=== PATIENT | female | born 1945 | race Caucasian/White ===

== ENCOUNTER 2016-11-07 15:15 | Inpatient (IN) | payer MEDICARE ==
[~2016-11-07] VITALS: Ht 162.6 cm; Wt 60.0 kg
[~2016-11-07 15:15] MED LIST: CYAN1TAB28 PO; FERR325T31 PO; POTA10TA31 PO; WARF5TAB7 PO; ZINC30TA2 PO
--- NOTE | 2016-11-07 19:14 | RAD ---
PROCEDURE CT HEAD HISTORY syncope
priors sent TECHNIQUE AXIAL IMAGES THROUGH THE HEAD WERE OBTAINED. NO IV CONTRAST WAS ADMINISTERED. COMPARISON NOTE IS MADE OF PREVIOUS EXAMINATION 12/07/2015. FINDINGS AN ACUTE CALVARIAL FINDING IS NOT SEEN. THE PARANASAL SINUSES APPEAR NORMALLY AERATED. THERE IS NO SUBDURAL OR EPIDURAL HEMATOMA. THERE IS SOME MODEST UNDERLYING ATROPHY. NO HEMORRHAGE IS SEEN. NO ACUTE FINDING IS APPARENT. IMPRESSION Chronic changes. No acute findings seen in the head Electronically signed by: Jc Moreno (Nov 07, 2016 19:13:22)
[2016-11-07 19:59] LABS: BASO % 1 % (0-3); EOS % 0 % (0-3); HEMATOCRIT 37.3 % (36.0-47.0); HEMOGLOBIN 12.4 g/dL (12.0-15.5); LYMPH # 1.1 x10^3/uL (1.0-4.8); LYMPH % 11 % (24-48); MEAN CORPUSCULAR HEMOGLOBIN 29 pg (25-35); MEAN CORPUSCULAR HGB CONC 33 g/dL (31-37); MEAN CORPUSCULAR VOLUME 87 fL (79-100); MONO % 8 % (0-9); NEUT % 81 % (31-73); PLATELET COUNT 229 x10^3/uL (140-400); WHITE BLOOD COUNT 10.4 x10^3/uL (4.0-11.0)
[2016-11-07 20:10] LABS: INR 2.5 (0.8-1.1); PROTHROMBIN TIME PATIENT 25.7 SEC (11.7-14.0)
[2016-11-07 21:49] LABS: OBC FLU VALID
[2016-11-07 22:20] LABS: CALCIUM 9.9 mg/dL (8.5-10.1); CREATININE 1.3 mg/dL (0.6-1.0); GFR 40.6
[2016-11-07 22:26] LABS: ALBUMIN 4.2 g/dL (3.4-5.0); ALBUMIN/GLOBULIN RATIO 1.4 (1.0-1.7); TOTAL BILIRUBIN 1.7 mg/dL (0.2-1.0); TOTAL PROTEIN 7.3 g/dL (6.4-8.2)
[2016-11-07 22:33] LABS: BILIRUBIN,URINE NEGATIVE (NEG); GLUCOSE,URINE NEGATIVE (NEG); NITRITE,URINE NEGATIVE (NEG); PH,URINE 5.5; PROTEIN,URINE NEGATIVE (NEG-TRACE); UROBILINOGEN,URINE 0.2 mg/dL (0.2 mg/dL)
[2016-11-07] MEDS ORDERED: ACETAMINOPHEN 325 MG TABLET. PO PRN (22:45)
[2016-11-07] MEDS ORDERED: ONDANSETRON PF 4 MG/2 ML VIAL. IV PRN (22:45)
--- NOTE | 2016-11-07 23:02 | ED.ADGEN ---
Past Medical History Past Medical History: Hypertension, Other Additional Past Medical Histor: DVT's, "blood clot in small intestine", heart murmur Past Surgical History: Tonsillectomy Additional Past Surgical Histo: abdominal surgery, fx to R wrist, left shoulder Alcohol Use: None Drug Use: None Adult General Chief Complaint Chief Complaint: SYNCOPE HPI HPI Patient is a 71 year old woman, history of aortic stenosis, atrial fibrillation , "blood clots", which resulted in ischemic bowel and a partial bowel resection , DVT, who is on anticoagulation with Coumadin, who presents emergency Department with complaint of syncope. Patient states that she's had tubes of the syncope over the last several days. Last week she had an episode of syncope at home, where after using the restroom, she got up, felt dizzy and lightheaded , and passed out on her bed. Did not strike her head, did not fall off the bed, denies any trauma that time. Today patient was at [facility] with her , she states that she walked up a flight of stairs rather rapidly, which received a top of the stairs became very dizzy and lightheaded, and then sat down, whereupon she had a brief episode of syncope per her ' s report. No seizure activity reported, patient stated that she did feel nauseous and lightheaded when it occurred. Denies any chest pain, mild shortness of breath. No shortness breath or chest pain at this time, patient states that she is feeling back to normal. Denies any palpitations, any weakness emesis or tingling, any injuries, any ingestions, any sick contacts, any fevers, chills, urinary complaints or GI complaints. States she has been compliant with all medications. Review of Systems Review of Systems Constitutional: Denies fever or chills. [] Eyes: Denies change in visual acuity. [] HENT: Denies nasal congestion or sore throat. [] Respiratory: Denies cough or shortness of breath. [] Cardiovascular: Denies chest pain or edema. [] GI: Denies abdominal pain, nausea, vomiting, bloody stools or diarrhea. [] : Denies dysuria. [] Musculoskeletal: Denies back pain or joint pain. [] Integument: Denies rash. [] Neurologic: Denies headache, focal weakness or sensory changes. Syncope. Endocrine: Denies polyuria or polydipsia. [] Lymphatic: Denies swollen glands. [] Psychiatric: Denies depression or anxiety. [] Current Medications Current Medications Current Medications Medications (Trade) Dose Ordered Sig/Jennifer Start Time Stop Time Status Last Admin Dose Admin Acetaminophen (Tylenol) 650 mg PRN Q4HRS PRN 11/07/16 22:45 11/08/16 22:44 Ondansetron HCl (Zofran) 4 mg PRN Q8HRS PRN 11/07/16 22:45 11/08/16 22:44 Allergies Allergies Allergies Coded Allergies Type Severity Reaction Last Updated Verified No Known Drug Allergies 01/09/14 No Physical Exam Physical Exam Constitutional: Well developed, well nourished, no acute distress, non-toxic appearance. [] HENT: Normocephalic, atraumatic, bilateral external ears normal, oropharynx moist, no oral exudates, nose normal. [] Eyes: PERRLA, EOMI, conjunctiva normal, no discharge. [] Neck: Normal range of motion, no tenderness, supple, no stridor. [] Cardiovascular:Heart rate regular rhythm, 4-5 systolic murmur, S1, S2, rubs or gallops. [] Lungs & Thorax: Bilateral breath sounds clear to auscultation, no wheezing, rhonchi, rales. No chest wall crepitus or tenderness. [] Abdomen: Bowel sounds normal, soft, no tenderness, no rebound, rigidity, no guarding, no masses, no pulsatile masses. [] Skin: Warm, dry, no erythema, no rash. [] Back: No tenderness, no CVA tenderness. [] Extremities: No tenderness, no cyanosis, no clubbing, ROM intact, no edema. Negative Homans sign. [] Neurologic: Alert and oriented X 3, normal motor function, normal sensory function, no focal deficits noted. [] Psychologic: Affect normal, judgement normal, mood normal. [] Current Patient Data Vital Signs Vital Signs Date Time Temp Pulse Resp B/P Pulse Ox O2 Delivery O2 Flow Rate FiO2 11/07/16 17:18 98.0 71 18 156/62 100 Room Air 98.0 Lab Values Laboratory Tests Test 11/07/16 17:47 11/07/16 19:23 Influenza Type A Antigen Negative (NEGATIVE) Influenza Type B Antigen Negative (NEGATIVE) White Blood Count 10.4x10^3/uL (4.0-11.0) Red Blood Count 4.30x10^6/uL (3.50-5.40) Hemoglobin 12.4g/dL (12.0-15.5) Hematocrit 37.3% (36.0-47.0) Mean Corpuscular Volume 87fL (79-100) Mean Corpuscular Hemoglobin 29pg (25-35) Mean Corpuscular Hemoglobin Concent 33g/dL (31-37) Red Cell Distribution Width 15.0% (11.5-14.5) H Platelet Count 229x10^3/uL (140-400) Neutrophils (%) (Auto) 81% (31-73) H Lymphocytes (%) (Auto) 11% (24-48) L Monocytes (%) (Auto) 8% (0-9) Eosinophils (%) (Auto) 0% (0-3) Basophils (%) (Auto) 1% (0-3) Neutrophils # (Auto) 8.4x10^3uL (1.8-7.7) H Lymphocytes # (Auto) 1.1x10^3/uL (1.0-4.8) Monocytes # (Auto) 0.8x10^3/uL (0.0-1.1) Eosinophils # (Auto) 0.0x10^3/uL (0.0-0.7) Basophils # (Auto) 0.0x10^3/uL (0.0-0.2) Prothrombin Time 25.7SEC (11.7-14.0) H Prothrombin Time INR 2.5 (0.8-1.1) H PTT 36SEC (24-38) Sodium Level 132mmol/L (136-145) L Potassium Level 4.0mmol/L (3.5-5.1) Chloride Level 94mmol/L (98-107) L Carbon Dioxide Level 20mmol/L (21-32) L Anion Gap 18 (6-14) H Blood Urea Nitrogen 32mg/dL (7-20) H Creatinine 1.3mg/dL (0.6-1.0) H Estimated GFR (Cockcroft-Gault) 40.6 BUN/Creatinine Ratio 25 (6-20) H Glucose Level 122mg/dL (70-99) H Calcium Level 9.9mg/dL (8.5-10.1) Total Bilirubin 1.7mg/dL (0.2-1.0) H Aspartate Amino Transferase (AST) 37U/L (15-37) Alanine Aminotransferase (ALT) 115U/L (14-59) H Alkaline Phosphatase 101U/L (46-116) Troponin I Quantitative < 0.017ng/mL (0.000-0.055) TW-Pms-Z-Type Natriuretic Peptide 218pg/mL (0-124) H Total Protein 7.3g/dL (6.4-8.2) Albumin 4.2g/dL (3.4-5.0) Albumin/Globulin Ratio 1.4 (1.0-1.7) Laboratory Tests 11/07/16 19:23 Laboratory Tests 11/07/16 19:23 EKG EKG EC: Sinus rhythm, heart rate 70 beats minute, upright axis, QTC of 393, MD of 208, QRS of 76, no ST elevations or depressions, contour abnormalities noted in the lateral leads, abnormal ECG, does not meet STEMI criteria. As interpreted by me. [] Radiology/Procedures Radiology/Procedures [] [facility] [address] [place], [place] [id number] IMAGING REPORT Signed PATIENT: PENELOPE ABEBE ACCOUNT: [id number] : 1945 LOCATION: ER AGE: 71 SEX: F EXAM STATUS: REG ER ORD. PHYSICIAN: ABRAHAM FRANK DO REASON: Syncope PROCEDURE: HEAD WO CONTRAST PROCEDURE CT HEAD HISTORY syncope
priors sent TECHNIQUE AXIAL IMAGES THROUGH THE HEAD WERE OBTAINED. NO IV CONTRAST WAS ADMINISTERED. COMPARISON NOTE IS MADE OF PREVIOUS EXAMINATION 12/07/2015. FINDINGS AN ACUTE CALVARIAL FINDING IS NOT SEEN. THE PARANASAL SINUSES APPEAR NORMALLY AERATED. THERE IS NO SUBDURAL OR EPIDURAL HEMATOMA. THERE IS SOME MODEST UNDERLYING ATROPHY. NO HEMORRHAGE IS SEEN. NO ACUTE FINDING IS APPARENT. IMPRESSION Chronic changes. No acute findings seen in the head Electronically signed by: Hamilton Moreno (Nov 07, 2016 19:13:22) DICTATED and SIGNED BY: HAMILTON MORENO MD DATE: 11/07/161912 CC: ABRAHAM FRANK DO; RANDI PRESCOTT MD ~ Chest x-ray: Normal cardiopulmonary silhouette, no infiltrates, no effusions, no soft tissue or bony abnormalities identified, no pneumothorax. As interpreted by me. Course & Med Decision Making Course & Med Decision Making Pertinent Labs and Imaging studies reviewed. (See chart for details) Patient with recurrent episodes of syncope, does follow with Dr. Montilla of cardiology at , and I'm concerned that these episodes may be due to her aortic stenosis patient history. She is not tachycardic or hypoxic, and is fully anticoagulated on Coumadin, with an INR of 2.5. Is resting completely at this time, but is agreeable for admission to the hospital for further evaluation of her syncope. Laboratory and imaging studies did not reveal any acutely concerning cause for the symptoms. I did discuss findings as above with Dr. Crook of internal medicine, patient was accepted his service as a full admission to the cardiac telemetry floor, with consultation for cardiology and bridge orders entered per his request. Dragon Disclaimer Dragon Disclaimer This electronic medical record was generated, in whole or in part, using a voice recognition dictation system. Departure Impression: Primary Impression: Syncope and collapse Additional Impression: Aortic stenosis Disposition: 09 ADMITTED INPATIENT Admitting Physician: Corinna Crook Condition: STABLE Problem Qualifiers Additional Impression: Aortic stenosis Cardiac valve disease etiology: etiology unspecified Qualified Code: I35.0 - Nonrheumatic aortic (valve) stenosis ABRAHAM FRANK DO Nov 07, 2016 23:02
[2016-11-07 23:18] LABS: BACTERIA,URINE FEW /HPF (0-FEW); RBC,URINE 0 /HPF (0-2); SQUAMOUS EPITHELIAL CELL,UR FEW /LPF; WBC,URINE 0 /HPF (0-4)
[2016-11-08] VITALS (8 sets, daily range): BP systolic 87–181; BP diastolic 42–66
--- NOTE | 2016-11-08 00:02 | ACF ---
Admission Forms Criteria SYNCOPE Clinical Indications for Admission to Inpatient Care ( Place 'X' for any and all applicable criteria): Admission is indicated for syncope and ANY ONE of the following (1)(2)(3)(4)(5) (6)(7) : [X]I. Inpatient admission required rather than observation care (Also use Syncope: Observation Care Criteria as appropriate) because of ANY ONE of the following: [ ]a) Hemodynamic instability that is severe or persistent [ ]b) Cardiac arrhythmias of immediate concern identified or strongly suspected (eg, needs electrophysiologic study) [ ]c) Acute coronary syndrome identified (Also use Myocardial Infarction or Angina Criteria form ) [X]d) Structural cardiac disorder (eg, aortic stenosis) suspected as cause that requires immediate correction [ ]e) Respiratory symptoms (eg, dyspnea, tachypnea) that are severe or persistent [ ]f) Neurologic signs or symptoms that are severe or persistent ( eg, stroke, seizures, altered mental status) [ ]g) Severe electrolyte abnormalities requiring inpatient care [ ]h) Supplemental oxygen or respiratory treatment for over 24 hrs that are performable only in acute inpatient setting [ ]i) IV fluid to replace significant ongoing (eg, for over 24 hrs ) losses (>3 L/m2 per day) [ ]j) Continuous intravenous infusion of anticoagulation, platelet inhibitor, vasoactive, or antiarrhythmic medication(15)(16) [ ]k) Pulmonary artery catheter monitoring [ ]l) Temporary pacemaker placement(17) [ ]m) Emergent cardioversion(18) [ ]n) Other conditions, treatment or monitoring requiring inpatient admission [ ]II. Suspicion of imminently dangerous cause (eg, rare causes like pericardial tamponade, pulmonary embolism) [ ]III. Syncope causing severe injury requiring hospitalization Extended stay beyond goal length of stay may be needed for(28) [ ]a) Dangerous arrhythmia(15)(23)(27)(29) [ ]b) Myocardial ischemia [ ]c) Seizure disorder [ ]d) Syncope-related injuries The original [employer] content created by [employer] has been revised. The portions of the content which have been revised are identified through the use of italic text or in bold, and [employer] has neither reviewed nor approved the modified material. All other unmodified content is copyright [employer]. Please see references footnoted in the original [facility] edition 2016 Admission Criteria Met?: Yes KP VALENTINE Nov 08, 2016 00:02
[2016-11-08 01:04] LABS: BASO # 0.1 x10^3/uL (0.0-0.2); BASO % 1 % (0-3); EOS % 0 % (0-3); HEMATOCRIT 34.7 % (36.0-47.0); HEMOGLOBIN 11.7 g/dL (12.0-15.5); LYMPH # 1.2 x10^3/uL (1.0-4.8); LYMPH % 12 % (24-48); MEAN CORPUSCULAR HEMOGLOBIN 29 pg (25-35); MEAN CORPUSCULAR HGB CONC 34 g/dL (31-37); MEAN CORPUSCULAR VOLUME 87 fL (79-100); MONO % 13 % (0-9); NEUT % 73 % (31-73); PLATELET COUNT 205 x10^3/uL (140-400); RED BLOOD COUNT 3.99 x10^6/uL (3.50-5.40); RED CELL DISTRIBUTION WIDTH 14.8 % (11.5-14.5); WHITE BLOOD COUNT 9.9 x10^3/uL (4.0-11.0)
[2016-11-08 01:16] LABS: CALCIUM 9.3 mg/dL (8.5-10.1); CREATININE 1.3 mg/dL (0.6-1.0); GFR 40.6; POTASSIUM 4.2 mmol/L (3.5-5.1)
[2016-11-08] MEDS ORDERED: AMLODIPINE BESYLATE 5 MG TABLET PO ONE (01:45)
--- NOTE | 2016-11-08 06:38 | EKG ---
[address] [place] [address] Test Date: 2016-11-07 Test Time: 18:16:18 Pat Name: PENELOPE ABEBE Department: Room: 263 1 Gender: F [employer]: : 1945 Requested By: ABRAHAM FRANK Order Number: [id number] Reading MD: Radha Skinner Measurements Intervals Pinson Rate: 70 P: 51 MI: 208 QRS: 13 QRSD: 76 T: 16 QT: 362 QTc: 393 Interpretive Statements SINUS RHYTHM NORMAL ECG RI6.01 No previous ECG available for comparison Electronically Signed On 11-12-2016 19:34:18 [employer] SPECIALIST by Radha Skinner
--- NOTE | 2016-11-08 08:50 | RAD ---
EXAM: Chest one view. HISTORY: Syncope, altered mental status. COMPARISON: 01/06/2006. FINDINGS: A frontal view of the chest is obtained. There are no confluent infiltrates. There is no pneumothorax or pleural effusion. The heart is not enlarged. There are atherosclerotic calcifications of the aorta. IMPRESSION: 1. No confluent infiltrates.
[2016-11-08] MEDS ORDERED: RAMI10CA PO (09:08)
[2016-11-08] MEDS ORDERED: CARV12.52 PO (09:11)
[2016-11-08] MEDS ORDERED: AMLO10TA2 PO (09:11)
[2016-11-08] MEDS ORDERED: ASPI81TA2 PO (09:11)
--- NOTE | 2016-11-08 09:22 | PDOC2 ---
CARDIAC CONSULT DATE OF CONSULT Date of Consult DATE: 11/08/16 TIME: 09:09 REASON FOR CONSULT Reason for Consult: syncope/aortic stenosis REFERRING PHYSICIAN Referring Physician: Iglesia SOURCE Source: Chart review, Patient HISTORY OF PRESENT ILLNESS HISTORY OF PRESENT ILLNESS This is a pleasant 71 yo female admitted for complains of passing out. Pt remembers some few details of her symptoms but otherwise a poor historian having problems remembering her medical history, medications, and details of her syncopal episode. Denies dementia but notable for short term memory issues. She is known for mild aortic stenosis and PAFIB and follows with Dr. Montilla in cardiology. She could not recall her last appointment. Her recollection is vague but according to chart review which some parts of it she remembers, her first episode of passing out was associated with getting up from the bathroom, ambulated and eventually passing out in bed. No falls associated with that. Her second episode was was at [employer] [place] after using the stairs, sat down then passed out. She remembers getting dizzy and weak but no associated palpitations, SOA, chest pain, visual/auditory disturbances. She typically drinks adequate amount of fluid daily but could not recall how much she drank yesterday. She finally was able to recall throwing up after breakfast. Spouse is not present to verify the details of her symptoms but no noted account of the time duration of her lost of consciousness. Denies syncope , VTE, CVA, seizures in the past. PAST MEDICAL HISTORY Cardiovascular: AFIB, HTN, Syncope (04/2016) Pulmonary: No pertinent hx CENTRAL NERVOUS SYSTEM: Other (No pertinent history) GI: No pertinent hx Heme/Onc: Anemia NOS Psych: Anxiety Musculoskeletal: Osteoarthritis Rheumatologic: No pertinent hx Infectious disease: No pertinent hx ENT: No pertinent hx Renal/: No pertinent hx Endocrine: No pertinent hx Dermatology: No pertinent hx PAST SURGICAL HISTORY Past Surgical History: Tonsillectomy, Colon Resection, Other (right wrist surgery; 1982 thyroid surgery; left arterial stenosis repair) FAMILY HISTORY Family History noncontributory SOCIAL HISTORY Smoke: No (remote) ALCOHOL: none Drugs: None Lives: with Family CURRENT MEDICATIONS CURRENT MEDICATIONS Current Medications Medications (Trade) Dose Ordered Sig/Jennifer Route PRN Reason Start Time Stop Time Status Last Admin Dose Admin Amlodipine Besylate (Norvasc) 5 mg 1X ONCE PO 11/08/16 01:45 11/08/16 01:46 DC 11/08/16 01:34 ALLERGIES ALLERGIES: Coded Allergies: No Known Drug Allergies (Unverified , 01/09/14) ROS Review of System 14 point ROS evaluated with pertinent positives noted per HPI PHYSICAL EXAM General: Alert, Oriented X3, Cooperative, No acute distress HEENT: Atraumatic, Mucous membr. moist/pink Lungs: Clear to auscultation, Normal air movement Heart: Normal S1, Normal S2, Other (AFIB rate controlled; 4/6 systolic murmur loudest to YAZAN border) Abdomen: Soft, No tenderness Extremities: No cyanosis, No edema Skin: No breakdown, No significant lesion Neuro: Normal speech, Sensation intact Psych/Mental Status: Mental status NL, Mood NL MUSCULOSKELETAL: Osteoarthritic changes both hands VITALS VITALS Vital Signs Date Time Temp Pulse Resp B/P Pulse Ox O2 Delivery O2 Flow Rate FiO2 11/08/16 07:07 98.0 66 20 123/57 97 Room Air 98.0 LABS Lab: Laboratory Tests Test 11/07/16 17:47 11/07/16 19:23 11/07/16 22:20 11/08/16 00:50 Influenza Type A Antigen Negative (NEGATIVE) Influenza Type B Antigen Negative (NEGATIVE) White Blood Count 10.4x10^3/uL (4.0-11.0) 9.9x10^3/uL (4.0-11.0) Red Blood Count 4.30x10^6/uL (3.50-5.40) 3.99x10^6/uL (3.50-5.40) Hemoglobin 12.4g/dL (12.0-15.5) 11.7g/dL (12.0-15.5) Hematocrit 37.3% (36.0-47.0) 34.7% (36.0-47.0) Mean Corpuscular Volume 87fL (79-100) 87fL (79-100) Mean Corpuscular Hemoglobin 29pg (25-35) 29pg (25-35) Mean Corpuscular Hemoglobin Concent 33g/dL (31-37) 34g/dL (31-37) Red Cell Distribution Width 15.0% (11.5-14.5) 14.8% (11.5-14.5) Platelet Count 229x10^3/uL (140-400) 205x10^3/uL (140-400) Neutrophils (%) (Auto) 81% (31-73) 73% (31-73) Lymphocytes (%) (Auto) 11% (24-48) 12% (24-48) Monocytes (%) (Auto) 8% (0-9) 13% (0-9) Eosinophils (%) (Auto) 0% (0-3) 0% (0-3) Basophils (%) (Auto) 1% (0-3) 1% (0-3) Neutrophils # (Auto) 8.4x10^3uL (1.8-7.7) 7.3x10^3uL (1.8-7.7) Lymphocytes # (Auto) 1.1x10^3/uL (1.0-4.8) 1.2x10^3/uL (1.0-4.8) Monocytes # (Auto) 0.8x10^3/uL (0.0-1.1) 1.3x10^3/uL (0.0-1.1) Eosinophils # (Auto) 0.0x10^3/uL (0.0-0.7) 0.0x10^3/uL (0.0-0.7) Basophils # (Auto) 0.0x10^3/uL (0.0-0.2) 0.1x10^3/uL (0.0-0.2) Prothrombin Time 25.7SEC (11.7-14.0) Prothromb Time International Ratio 2.5 (0.8-1.1) Activated Partial Thromboplast Time 36SEC (24-38) Sodium Level 132mmol/L (136-145) 133mmol/L (136-145) Potassium Level 4.0mmol/L (3.5-5.1) 4.2mmol/L (3.5-5.1) Chloride Level 94mmol/L (98-107) 96mmol/L (98-107) Carbon Dioxide Level 20mmol/L (21-32) 26mmol/L (21-32) Anion Gap 18 (6-14) 11 (6-14) Blood Urea Nitrogen 32mg/dL (7-20) 30mg/dL (7-20) Creatinine 1.3mg/dL (0.6-1.0) 1.3mg/dL (0.6-1.0) Estimated GFR (Cockcroft-Gault) 40.6 40.6 BUN/Creatinine Ratio 25 (6-20) Glucose Level 122mg/dL (70-99) 107mg/dL (70-99) Calcium Level 9.9mg/dL (8.5-10.1) 9.3mg/dL (8.5-10.1) Total Bilirubin 1.7mg/dL (0.2-1.0) Aspartate Amino Transf (AST/SGOT) 37U/L (15-37) Alanine Aminotransferase (ALT/SGPT) 115U/L (14-59) Alkaline Phosphatase 101U/L (46-116) Troponin I Quantitative < 0.017ng/mL (0.000-0.055) < 0.017ng/mL (0.000-0.055) HA-Wuk-D-Type Natriuretic Peptide 218pg/mL (0-124) Total Protein 7.3g/dL (6.4-8.2) Albumin 4.2g/dL (3.4-5.0) Albumin/Globulin Ratio 1.4 (1.0-1.7) Urine Collection Type Unknown Urine Color Yellow Urine Clarity Clear Urine pH 5.5 Urine Specific [place] 1.015 Urine Protein Negativemg/dL (NEG-TRACE) Urine Glucose (UA) Negativemg/dL (NEG) Urine Ketones (Stick) Negativemg/dL (NEG) Urine Blood Negative (NEG) Urine Nitrite Negative (NEG) Urine Bilirubin Negative (NEG) Urine Urobilinogen Dipstick 0.2mg/dL (0.2 mg/dL) Urine Leukocyte Esterase Negative (NEG) Urine RBC 0/HPF (0-2) Urine WBC 0/HPF (0-4) Urine Squamous Epithelial Cells Few/LPF Urine Bacteria Few/HPF (0-FEW) Test 11/08/16 07:40 Troponin I Quantitative < 0.017ng/mL (0.000-0.055) ECHOCARDIOGRAM ECHOCARDIOGRAM <Conclusion> The left ventricular systolic function is normal. The Ejection Fraction is estimated at 60-65%. There is normal LV segmental wall motion. There is mild valvular aortic stenosis. Calculated aortic valve area is 1.6 cm2 with maximum pressure gradient of 20mmHg and mean pressure gradient of 11mmHg. Doppler and Color Flow revealed trace mitral regurgitation. Doppler and Color Flow revealed trace tricuspid regurgitation. The PA pressure was estimated at 27 mmHg. There is no evidence of significant pericardial effusion. DATE: 03/06/15 1023 ASSESSMENT/PLAN ASSESSMENT/PLAN 1. Syncope: x2 episodes post exertional. Last syncopal episode 04/2016 admitted at [facility] was told of dehydration 2. CAMILO with anion gap metabolic acidosis: likely due to dehydration with associated vomiting 3. PAFIB: currently AFIB, rate controlled. EKG SR with first degree AV block. No noted orthostasis 4. Chronic anticoagulation: coumadin 5. Known aortic stenosis: mild on TTE in 2014. 6. Hx of left subclavian stenosis with surgery: remote 7. Hx of remote thyroid surgery: no known replacement therapy 8. Hypomagnesemia 9. HTN: controlled Recommendations 1. Multifactorial causes for syncope- start IVF, TTE and note degree, TSH, lipid panel 2. Pt will need outpt event monitor and rule out any tachy- nik syndrome 3. Continue on warfarin therapy 4. No diuretics. Replace Mg. 5. Obtain records from Dr. Montilla, cardiology and [facility] records 6. 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 Resume antiHTN regimen. Will change coreg to metoprolol. Problems: RICH OLMEDO APRN Nov 08, 2016 09:22
[2016-11-08 10:00] LABS: MAGNESIUM 1.3 mg/dL (1.8-2.4)
[2016-11-08 10:03] LABS: CHOLESTEROL/HDL RATIO 2.9
--- NOTE | 2016-11-08 10:13 | PDOC1 ---
History and Physical Date of Admission Date of Admission DATE: 11/08/16 TIME: 10:12 Identification/Chief Complaint Chief Complaint syncope Source Source: Caregiver, Chart review, Patient History of Present Illness History of Present Illness Ms. Padilla is a 71 yo female admitted s/p syncope. [facility] [place], went up the long stairway, 3 fligths, was short of breath, then sat down and passed out. She has poor recollection, and her assited with story. was dizzy, weak , complained of palpitations, then LOC Denies dementia, but some memory issues have started. Known Hx aortic stenosis 1.6 cm valve 2 years ago. PCP, Dr. Askew, CV, Dr. Montilla she feels well this AM, would like to eat, and wanted to go home Past Medical History Cardiovascular: HTN, Hyperlipidemia Heme/Onc: Anemia NOS Psych: Anxiety Musculoskeletal: Osteoarthritis Renal/: UTI Endocrine: Diabetes (2), Hypothyroidism Past Surgical History Past Surgical History: Arthroscopy, Total knee replacement (right), Tonsillectomy, Colon Resection, Other (right wrist surgery; abdominal surgery) Family History Family History: No Significant Social History Smoke: No ALCOHOL: none Current Problem List Problem List Problems Medical Problems: (1) Aortic stenosis Status: Acute (2) Syncope and collapse Status: Acute Problems: Current Medications Current Medications Current Medications Ondansetron HCl (Zofran) 4 mg PRN Q8HRS PRN IV NAUSEA/VOMITING; Start 11/07/16 at 22:45; Stop 11/08/16 at 22:44 Acetaminophen (Tylenol) 650 mg PRN Q4HRS PRN PO FEVER; Start 11/07/16 at 22:45 ; Stop 11/08/16 at 22:44 Amlodipine Besylate (Norvasc) 5 mg 1X ONCE PO Last administered on 11/08/16t 01:34; Start 11/08/16 at 01:45; Stop 11/08/16 at 01:46; Status DC Active Scripts Active Reported Aspirin 81 Mg Tab.chew 1 Tab PO DAILY Carvedilol 12.5 Mg Tablet 1 Tab PO BID Amlodipine Besylate 10 Mg Tablet 10 Mg PO DAILY Ramipril 10 Mg Capsule 1 Cap PO DAILY Vitamin V09-[id number] Acid Tablet (Cyanocobalamin/Folic Acid) 1 Each Tablet Unknown Dose PO Iron (Ferrous Sulfate) 325 Mg Tablet Unknown Dose PO Warfarin Sodium 5 Mg Tablet Unknown Dose PO Potassium Chloride 10 Meq Tab.er.prt Unknown Dose PO Allergies Allergies: Coded Allergies: No Known Drug Allergies (Unverified , 01/09/14) ROS General: No: Appetite, Chills, Fatigue, Malaise, Night Sweats, Other PSYCHOLOGICAL ROS: No: Anxiety, Behavioral Disorder, Concentration difficultie , Decreased libido, Depression, Disorientation, Hallucinations, Hostility, Irritablity, Memory difficulties, Mood Swings, Obsessive thoughts, Other, Physical abuse, Sexual abuse, Sleep disturbances, Suicidal ideation Eyes: No Blurry vision, No Decreased vision, No Double vision, No Dry eyes, No Excessive tearing, No Eye Pain, No Itchy Eyes, No Loss of vision, No Other, No Photophobia, No Scotomata, No Uses contacts, No Uses glasses HEENT: YES: Heacaches, No: Epistaxis, Hearing change, Nasal congestion, Nasal discharge, Oral lesions, Other, Sinus pain, Sneezing, Snoring, Sore Throat, Tinnitus, Vertigo, Visual Changes, Vocal changes Respiratory: YES: SOB with excertion, No: Cough, Hemoptysis, Orthopnea, Other, Pleuritic Pain, Shortness of breath , Sputum Changes, Stridor, Tachypnea, Wheezing Cardiovascular: No Chest Pain, No Edema, No Lt Headedness, No Orthopnea, No Other, No Palpitations, No Paroxysmal Noc. Dyspnea Gastrointestinal: No Abdominal Pain, No Constipation, No Diarrhea, No Hematochezia, No Melena, No Nausea, No Other, No Vomiting Genitourinary: No , No , No , No , No , No , No , No Discharge, No Dysuria, No Flank Pain, No Frequency, No Hematuria, No Incontinence, No Other, No Pain, No Retention, No Urgency Musculoskeletal: Yes Gait Disturbance, Yes Joint Stiffness, No Joint Pain, No Joint Swelling, No Muscle Pain, No Muscular Weakness, No Other, No Pain In:, No Swelling In: Neurological: No Behavorial Changes, No Bowel/Bladder ControlChng, No Confusion , No Dizziness, No Gait Disturbance, No Headaches, No Impaired Coord/balance, No Memory Loss, No Numbness/Tingling, No Other, No Seizures, No Speech Problems , No Tremors, No Visual Changes, No Weakness Skin: No Acne, No Dry Skin, No Eczema, No Hair Changes, No Lumps, No Mole Changes, No Mottling, No Nail Changes, No Other, No Pruritus, No Rash, No Skin Lesion Changes Physical Exam General: Alert, Oriented X3, No acute distress HEENT: Atraumatic, PERRLA, EOMI, Mucous membr. moist/pink Lungs: Normal air movement Heart: no murmurs Abdomen: Normal bowel sounds, Soft Rectal Exam: not examined Extremities: No clubbing, No edema, Normal pulses Skin: No significant lesion Neuro: Normal speech, Normal tone, Cranial nerves 3-12 NL Psych/Mental Status: Mood NL Vitals Vitals Vital Signs Date Time Temp Pulse Resp B/P Pulse Ox O2 Delivery O2 Flow Rate FiO2 11/08/16 10:00 97.9 71 20 131/47 95 Room Air 97.9 Labs Labs Laboratory Tests Test 11/07/16 17:47 11/07/16 19:23 11/07/16 22:20 11/08/16 00:50 Influenza Type A Antigen Negative (NEGATIVE) Influenza Type B Antigen Negative (NEGATIVE) White Blood Count 10.4x10^3/uL (4.0-11.0) 9.9x10^3/uL (4.0-11.0) Red Blood Count 4.30x10^6/uL (3.50-5.40) 3.99x10^6/uL (3.50-5.40) Hemoglobin 12.4g/dL (12.0-15.5) 11.7g/dL (12.0-15.5) Hematocrit 37.3% (36.0-47.0) 34.7% (36.0-47.0) Mean Corpuscular Volume 87fL (79-100) 87fL (79-100) Mean Corpuscular Hemoglobin 29pg (25-35) 29pg (25-35) Mean Corpuscular Hemoglobin Concent 33g/dL (31-37) 34g/dL (31-37) Red Cell Distribution Width 15.0% (11.5-14.5) 14.8% (11.5-14.5) Platelet Count 229x10^3/uL (140-400) 205x10^3/uL (140-400) Neutrophils (%) (Auto) 81% (31-73) 73% (31-73) Lymphocytes (%) (Auto) 11% (24-48) 12% (24-48) Monocytes (%) (Auto) 8% (0-9) 13% (0-9) Eosinophils (%) (Auto) 0% (0-3) 0% (0-3) Basophils (%) (Auto) 1% (0-3) 1% (0-3) Neutrophils # (Auto) 8.4x10^3uL (1.8-7.7) 7.3x10^3uL (1.8-7.7) Lymphocytes # (Auto) 1.1x10^3/uL (1.0-4.8) 1.2x10^3/uL (1.0-4.8) Monocytes # (Auto) 0.8x10^3/uL (0.0-1.1) 1.3x10^3/uL (0.0-1.1) Eosinophils # (Auto) 0.0x10^3/uL (0.0-0.7) 0.0x10^3/uL (0.0-0.7) Basophils # (Auto) 0.0x10^3/uL (0.0-0.2) 0.1x10^3/uL (0.0-0.2) Prothrombin Time 25.7SEC (11.7-14.0) Prothromb Time International Ratio 2.5 (0.8-1.1) Activated Partial Thromboplast Time 36SEC (24-38) Sodium Level 132mmol/L (136-145) 133mmol/L (136-145) Potassium Level 4.0mmol/L (3.5-5.1) 4.2mmol/L (3.5-5.1) Chloride Level 94mmol/L (98-107) 96mmol/L (98-107) Carbon Dioxide Level 20mmol/L (21-32) 26mmol/L (21-32) Anion Gap 18 (6-14) 11 (6-14) Blood Urea Nitrogen 32mg/dL (7-20) 30mg/dL (7-20) Creatinine 1.3mg/dL (0.6-1.0) 1.3mg/dL (0.6-1.0) Estimated GFR (Cockcroft-Gault) 40.6 40.6 BUN/Creatinine Ratio 25 (6-20) Glucose Level 122mg/dL (70-99) 107mg/dL (70-99) Calcium Level 9.9mg/dL (8.5-10.1) 9.3mg/dL (8.5-10.1) Total Bilirubin 1.7mg/dL (0.2-1.0) Aspartate Amino Transf (AST/SGOT) 37U/L (15-37) Alanine Aminotransferase (ALT/SGPT) 115U/L (14-59) Alkaline Phosphatase 101U/L (46-116) Troponin I Quantitative < 0.017ng/mL (0.000-0.055) < 0.017ng/mL (0.000-0.055) OB-Awf-E-Type Natriuretic Peptide 218pg/mL (0-124) Total Protein 7.3g/dL (6.4-8.2) Albumin 4.2g/dL (3.4-5.0) Albumin/Globulin Ratio 1.4 (1.0-1.7) Urine Collection Type Unknown Urine Color Yellow Urine Clarity Clear Urine pH 5.5 Urine Specific Kinzers 1.015 Urine Protein Negativemg/dL (NEG-TRACE) Urine Glucose (UA) Negativemg/dL (NEG) Urine Ketones (Stick) Negativemg/dL (NEG) Urine Blood Negative (NEG) Urine Nitrite Negative (NEG) Urine Bilirubin Negative (NEG) Urine Urobilinogen Dipstick 0.2mg/dL (0.2 mg/dL) Urine Leukocyte Esterase Negative (NEG) Urine RBC 0/HPF (0-2) Urine WBC 0/HPF (0-4) Urine Squamous Epithelial Cells Few/LPF Urine Bacteria Few/HPF (0-FEW) Test 11/08/16 07:40 Magnesium Level 1.3mg/dL (1.8-2.4) Troponin I Quantitative < 0.017ng/mL (0.000-0.055) Triglycerides Level 31mg/dL (0-150) Cholesterol Level 117mg/dL (0-200) LDL Cholesterol, Calculated 70mg/dL (0-100) VLDL Cholesterol, Calculated 6mg/dL (0-40) HDL Cholesterol 41mg/dL (40-60) Cholesterol/HDL Ratio 2.9 Thyroid Stimulating Hormone (TSH) 1.328uIU/mL (0.358-3.74) Laboratory Tests Test 11/07/16 17:47 11/07/16 19:23 11/07/16 22:20 11/08/16 00:50 Influenza Type A Antigen Negative (NEGATIVE) Influenza Type B Antigen Negative (NEGATIVE) White Blood Count 10.4x10^3/uL (4.0-11.0) 9.9x10^3/uL (4.0-11.0) Red Blood Count 4.30x10^6/uL (3.50-5.40) 3.99x10^6/uL (3.50-5.40) Hemoglobin 12.4g/dL (12.0-15.5) 11.7g/dL (12.0-15.5) Hematocrit 37.3% (36.0-47.0) 34.7% (36.0-47.0) Mean Corpuscular Volume 87fL (79-100) 87fL (79-100) Mean Corpuscular Hemoglobin 29pg (25-35) 29pg (25-35) Mean Corpuscular Hemoglobin Concent 33g/dL (31-37) 34g/dL (31-37) Red Cell Distribution Width 15.0% (11.5-14.5) 14.8% (11.5-14.5) Platelet Count 229x10^3/uL (140-400) 205x10^3/uL (140-400) Neutrophils (%) (Auto) 81% (31-73) 73% (31-73) Lymphocytes (%) (Auto) 11% (24-48) 12% (24-48) Monocytes (%) (Auto) 8% (0-9) 13% (0-9) Eosinophils (%) (Auto) 0% (0-3) 0% (0-3) Basophils (%) (Auto) 1% (0-3) 1% (0-3) Neutrophils # (Auto) 8.4x10^3uL (1.8-7.7) 7.3x10^3uL (1.8-7.7) Lymphocytes # (Auto) 1.1x10^3/uL (1.0-4.8) 1.2x10^3/uL (1.0-4.8) Monocytes # (Auto) 0.8x10^3/uL (0.0-1.1) 1.3x10^3/uL (0.0-1.1) Eosinophils # (Auto) 0.0x10^3/uL (0.0-0.7) 0.0x10^3/uL (0.0-0.7) Basophils # (Auto) 0.0x10^3/uL (0.0-0.2) 0.1x10^3/uL (0.0-0.2) Prothrombin Time 25.7SEC (11.7-14.0) Prothromb Time International Ratio 2.5 (0.8-1.1) Activated Partial Thromboplast Time 36SEC (24-38) Sodium Level 132mmol/L (136-145) 133mmol/L (136-145) Potassium Level 4.0mmol/L (3.5-5.1) 4.2mmol/L (3.5-5.1) Chloride Level 94mmol/L (98-107) 96mmol/L (98-107) Carbon Dioxide Level 20mmol/L (21-32) 26mmol/L (21-32) Anion Gap 18 (6-14) 11 (6-14) Blood Urea Nitrogen 32mg/dL (7-20) 30mg/dL (7-20) Creatinine 1.3mg/dL (0.6-1.0) 1.3mg/dL (0.6-1.0) Estimated GFR (Cockcroft-Gault) 40.6 40.6 BUN/Creatinine Ratio 25 (6-20) Glucose Level 122mg/dL (70-99) 107mg/dL (70-99) Calcium Level 9.9mg/dL (8.5-10.1) 9.3mg/dL (8.5-10.1) Total Bilirubin 1.7mg/dL (0.2-1.0) Aspartate Amino Transf (AST/SGOT) 37U/L (15-37) Alanine Aminotransferase (ALT/SGPT) 115U/L (14-59) Alkaline Phosphatase 101U/L (46-116) Troponin I Quantitative < 0.017ng/mL (0.000-0.055) < 0.017ng/mL (0.000-0.055) NO-Rfq-W-Type Natriuretic Peptide 218pg/mL (0-124) Total Protein 7.3g/dL (6.4-8.2) Albumin 4.2g/dL (3.4-5.0) Albumin/Globulin Ratio 1.4 (1.0-1.7) Urine Collection Type Unknown Urine Color Yellow Urine Clarity Clear Urine pH 5.5 Urine Specific Kinzers 1.015 Urine Protein Negativemg/dL (NEG-TRACE) Urine Glucose (UA) Negativemg/dL (NEG) Urine Ketones (Stick) Negativemg/dL (NEG) Urine Blood Negative (NEG) Urine Nitrite Negative (NEG) Urine Bilirubin Negative (NEG) Urine Urobilinogen Dipstick 0.2mg/dL (0.2 mg/dL) Urine Leukocyte Esterase Negative (NEG) Urine RBC 0/HPF (0-2) Urine WBC 0/HPF (0-4) Urine Squamous Epithelial Cells Few/LPF Urine Bacteria Few/HPF (0-FEW) Test 11/08/16 07:40 Magnesium Level 1.3mg/dL (1.8-2.4) Troponin I Quantitative < 0.017ng/mL (0.000-0.055) Triglycerides Level 31mg/dL (0-150) Cholesterol Level 117mg/dL (0-200) LDL Cholesterol, Calculated 70mg/dL (0-100) VLDL Cholesterol, Calculated 6mg/dL (0-40) HDL Cholesterol 41mg/dL (40-60) Cholesterol/HDL Ratio 2.9 Thyroid Stimulating Hormone (TSH) 1.328uIU/mL (0.358-3.74) VTE Prophylaxis Ordered VTE Prophylaxis Devices: No VTE Pharmacological Prophylaxi: Yes Assessment/Plan Assessment/Plan Syncope CHF, acute systolic sx exercise intolerance, reports sedentary admit Echo Hx Mod aortic stenosis, may be progressing, HTN, afib, hypomag, CKD 3, consult renal if DC, would benefit from CV rehab, pt would like to be DC EVAN BUSH MD Nov 08, 2016 10:13
[2016-11-08] MEDS ORDERED: MAGNESIUM SULFATE 4GM 100 ML IV ONE ×2 (11:00)
[2016-11-08] MEDS ORDERED: IV NORMAL SALINE 1000ML BAG 1,000 ML IV ONE (11:00)
[2016-11-08] MEDS ORDERED: POTASSIUM CHLORIDE 10 MEQ TABLET.ER. PO SCH (11:30)
[2016-11-08] MEDS ORDERED: LISINOPRIL 20 MG TABLET PO SCH (11:30)
[2016-11-08] MEDS ORDERED: FERROUS SULFATE 325 MG TABLET PO SCH (11:30)
[2016-11-08] MEDS ORDERED: ASPIRIN 81 MG TAB.CHEW PO SCH (11:30)
--- NOTE | 2016-11-08 12:09 | CARD ---
APPROVED REPORT EXAM: Two-dimensional and M-mode echocardiogram with Doppler and color Doppler. Other Information Quality : Good INDICATION Aortic Valve Disease Syncope 2D DIMENSIONS RVDd2.6 (2.9-3.5cm)Left Atrium(2D)3.2 (1.6-4.0cm) IVSd0.8 (0.7-1.1cm)Aortic Root(2D)2.1 (2.0-3.7cm) LVDd3.8 (3.9-5.9cm)LVOT Diameter2.0 (1.8-2.4cm) PWd0.9 (0.7-1.1cm)LVDs2.0 (2.5-4.0cm) FS (%) 30.0 %SV50.7 ml LVEF(%)60.0 (>50%) Aortic Valve AoV Peak Osiel.271.6cm/sAoV VTI63.9cm AO Peak GR.29.5mmHgLVOT Peak Osiel.136.7cm/s AO Mean GR.14mmHgAVA (VMAX)1.58cm2 DOROTHY (VTI)1.70cm2 Mitral Valve MV E Ipepenfa31.1cm/sMV DECEL [id number] MV A Mqpqztim85.0cm/sE/A Ratio0.9 Pulmonary Valve PV Peak Xigghvrb551.3cm/s Tricuspid Valve TR P. Gaxpdkez529la/sRAP [id number] TR Peak Gr.90uaYdKSCW24kkUx Pulmonary Vein S1 Zsxrajhd75.9cm/sD2 Rroxatgw74.1cm/s PVa [id number] LEFT VENTRICLE The left ventricle is normal size. There is normal left ventricular wall thickness. The left ventricu lar systolic function is normal and the ejection fraction is within normal range. The Ejection Fracti on is 55-60%. There is normal LV segmental wall motion. Transmitral Doppler flow pattern is Grade I-a bnormal relaxation pattern. RIGHT VENTRICLE The right ventricle is normal size. The right ventricular systolic function is normal. ATRIA The left atrium size is normal. The right atrium size is normal. The interatrial septum is intact wit h no evidence for an atrial septal defect or patent foramen ovale as noted on 2-D or Doppler imaging. AORTIC VALVE The aortic valve is moderately thickened/calcified with restricted leaflet motion. Doppler and Color Flow revealed no significant aortic regurgitation. There is mild valvular aortic stenosis. MITRAL VALVE The mitral valve is normal in structure and function. There is no evidence of mitral valve prolapse. There is no mitral valve stenosis. Doppler and Color-flow revealed trace mitral regurgitation. TRICUSPID VALVE The tricuspid valve is normal in structure and function. Doppler and Color Flow revealed trace to mil d tricuspid regurgitation. There is mild pulmonary hypertension. The PA pressure was estimated at 30 mmHg. There is no tricuspid valve stenosis. PULMONIC VALVE Doppler and Color Flow revealed trace pulmonic valvular regurgitation. There is high flow velocity th rough the pulmonic valve indicative of mild pulmonic stenosis. GREAT VESSELS The aortic root is normal in size. The ascending aorta is normal in size. The IVC is normal in size a nd collapses >50% with inspiration. PERICARDIAL EFFUSION There is no evidence of significant pericardial effusion. Critical Notification Critical Value: No <Conclusion> The left ventricular systolic function is normal and the ejection fraction is within normal range. Th e Ejection Fraction is 55-60%. There is normal LV segmental wall motion.
[2016-11-08] MEDS ORDERED: WARFARIN 5 MG TABLET. PO SCH (16:00)
[2016-11-08] MEDS ORDERED: ENOXAPARIN 40 MG/0.4 ML DISP.SYRIN. SQ SCH (16:00)
[2016-11-08] MEDS ORDERED: CARVEDILOL 12.5 MG TABLET PO SCH (17:00)
--- NOTE | 2016-11-08 18:50 | PDOC ---
PROGRESS NOTES Subjective Subjective RN informs me that pt is in a hurry to go home and would rather see a different [place] - so no formal consult done Objective Objective Vital Signs Date Time Temp Pulse Resp B/P Pulse Ox O2 Delivery O2 Flow Rate FiO2 11/08/16 16:49 87/47 11/08/16 14:40 98.0 75 18 96 Room Air 98.0 Intake and Output 11/08/16 07:00 Intake Total 0 ml Balance 0 ml Intake Oral 0 ml # Voids 1 # Bowel Movements 1 Assessment Assessment Problems Medical Problems: (1) Aortic stenosis Status: Acute (2) Syncope and collapse Status: Acute Comment Review of Relevant I have reviewed the following items tomi (where applicable) has been applied. Labs Laboratory Tests Test 11/07/16 17:47 11/07/16 19:23 11/07/16 22:20 11/08/16 00:50 Influenza Type A Antigen Negative (NEGATIVE) Influenza Type B Antigen Negative (NEGATIVE) White Blood Count 10.4x10^3/uL (4.0-11.0) 9.9x10^3/uL (4.0-11.0) Red Blood Count 4.30x10^6/uL (3.50-5.40) 3.99x10^6/uL (3.50-5.40) Hemoglobin 12.4g/dL (12.0-15.5) 11.7g/dL (12.0-15.5) Hematocrit 37.3% (36.0-47.0) 34.7% (36.0-47.0) Mean Corpuscular Volume 87fL (79-100) 87fL (79-100) Mean Corpuscular Hemoglobin 29pg (25-35) 29pg (25-35) Mean Corpuscular Hemoglobin Concent 33g/dL (31-37) 34g/dL (31-37) Red Cell Distribution Width 15.0% (11.5-14.5) 14.8% (11.5-14.5) Platelet Count 229x10^3/uL (140-400) 205x10^3/uL (140-400) Neutrophils (%) (Auto) 81% (31-73) 73% (31-73) Lymphocytes (%) (Auto) 11% (24-48) 12% (24-48) Monocytes (%) (Auto) 8% (0-9) 13% (0-9) Eosinophils (%) (Auto) 0% (0-3) 0% (0-3) Basophils (%) (Auto) 1% (0-3) 1% (0-3) Neutrophils # (Auto) 8.4x10^3uL (1.8-7.7) 7.3x10^3uL (1.8-7.7) Lymphocytes # (Auto) 1.1x10^3/uL (1.0-4.8) 1.2x10^3/uL (1.0-4.8) Monocytes # (Auto) 0.8x10^3/uL (0.0-1.1) 1.3x10^3/uL (0.0-1.1) Eosinophils # (Auto) 0.0x10^3/uL (0.0-0.7) 0.0x10^3/uL (0.0-0.7) Basophils # (Auto) 0.0x10^3/uL (0.0-0.2) 0.1x10^3/uL (0.0-0.2) Prothrombin Time 25.7SEC (11.7-14.0) Prothromb Time International Ratio 2.5 (0.8-1.1) Activated Partial Thromboplast Time 36SEC (24-38) Sodium Level 132mmol/L (136-145) 133mmol/L (136-145) Potassium Level 4.0mmol/L (3.5-5.1) 4.2mmol/L (3.5-5.1) Chloride Level 94mmol/L (98-107) 96mmol/L (98-107) Carbon Dioxide Level 20mmol/L (21-32) 26mmol/L (21-32) Anion Gap 18 (6-14) 11 (6-14) Blood Urea Nitrogen 32mg/dL (7-20) 30mg/dL (7-20) Creatinine 1.3mg/dL (0.6-1.0) 1.3mg/dL (0.6-1.0) Estimated GFR (Cockcroft-Gault) 40.6 40.6 BUN/Creatinine Ratio 25 (6-20) Glucose Level 122mg/dL (70-99) 107mg/dL (70-99) Calcium Level 9.9mg/dL (8.5-10.1) 9.3mg/dL (8.5-10.1) Total Bilirubin 1.7mg/dL (0.2-1.0) Aspartate Amino Transf (AST/SGOT) 37U/L (15-37) Alanine Aminotransferase (ALT/SGPT) 115U/L (14-59) Alkaline Phosphatase 101U/L (46-116) Troponin I Quantitative < 0.017ng/mL (0.000-0.055) < 0.017ng/mL (0.000-0.055) KE-Haj-V-Type Natriuretic Peptide 218pg/mL (0-124) Total Protein 7.3g/dL (6.4-8.2) Albumin 4.2g/dL (3.4-5.0) Albumin/Globulin Ratio 1.4 (1.0-1.7) Urine Collection Type Unknown Urine Color Yellow Urine Clarity Clear Urine pH 5.5 Urine Specific [place] 1.015 Urine Protein Negativemg/dL (NEG-TRACE) Urine Glucose (UA) Negativemg/dL (NEG) Urine Ketones (Stick) Negativemg/dL (NEG) Urine Blood Negative (NEG) Urine Nitrite Negative (NEG) Urine Bilirubin Negative (NEG) Urine Urobilinogen Dipstick 0.2mg/dL (0.2 mg/dL) Urine Leukocyte Esterase Negative (NEG) Urine RBC 0/HPF (0-2) Urine WBC 0/HPF (0-4) Urine Squamous Epithelial Cells Few/LPF Urine Bacteria Few/HPF (0-FEW) Test 11/08/16 07:40 Magnesium Level 1.3mg/dL (1.8-2.4) Creatine Kinase 48U/L (26-192) Troponin I Quantitative < 0.017ng/mL (0.000-0.055) Triglycerides Level 31mg/dL (0-150) Cholesterol Level 117mg/dL (0-200) LDL Cholesterol, Calculated 70mg/dL (0-100) VLDL Cholesterol, Calculated 6mg/dL (0-40) HDL Cholesterol 41mg/dL (40-60) Cholesterol/HDL Ratio 2.9 Thyroid Stimulating Hormone (TSH) 1.328uIU/mL (0.358-3.74) Laboratory Tests Test 11/07/16 19:23 11/07/16 22:20 11/08/16 00:50 11/08/16 07:40 White Blood Count 10.4x10^3/uL (4.0-11.0) 9.9x10^3/uL (4.0-11.0) Red Blood Count 4.30x10^6/uL (3.50-5.40) 3.99x10^6/uL (3.50-5.40) Hemoglobin 12.4g/dL (12.0-15.5) 11.7g/dL (12.0-15.5) Hematocrit 37.3% (36.0-47.0) 34.7% (36.0-47.0) Mean Corpuscular Volume 87fL (79-100) 87fL (79-100) Mean Corpuscular Hemoglobin 29pg (25-35) 29pg (25-35) Mean Corpuscular Hemoglobin Concent 33g/dL (31-37) 34g/dL (31-37) Red Cell Distribution Width 15.0% (11.5-14.5) 14.8% (11.5-14.5) Platelet Count 229x10^3/uL (140-400) 205x10^3/uL (140-400) Neutrophils (%) (Auto) 81% (31-73) 73% (31-73) Lymphocytes (%) (Auto) 11% (24-48) 12% (24-48) Monocytes (%) (Auto) 8% (0-9) 13% (0-9) Eosinophils (%) (Auto) 0% (0-3) 0% (0-3) Basophils (%) (Auto) 1% (0-3) 1% (0-3) Neutrophils # (Auto) 8.4x10^3uL (1.8-7.7) 7.3x10^3uL (1.8-7.7) Lymphocytes # (Auto) 1.1x10^3/uL (1.0-4.8) 1.2x10^3/uL (1.0-4.8) Monocytes # (Auto) 0.8x10^3/uL (0.0-1.1) 1.3x10^3/uL (0.0-1.1) Eosinophils # (Auto) 0.0x10^3/uL (0.0-0.7) 0.0x10^3/uL (0.0-0.7) Basophils # (Auto) 0.0x10^3/uL (0.0-0.2) 0.1x10^3/uL (0.0-0.2) Prothrombin Time 25.7SEC (11.7-14.0) Prothromb Time International Ratio 2.5 (0.8-1.1) Activated Partial Thromboplast Time 36SEC (24-38) Sodium Level 132mmol/L (136-145) 133mmol/L (136-145) Potassium Level 4.0mmol/L (3.5-5.1) 4.2mmol/L (3.5-5.1) Chloride Level 94mmol/L (98-107) 96mmol/L (98-107) Carbon Dioxide Level 20mmol/L (21-32) 26mmol/L (21-32) Anion Gap 18 (6-14) 11 (6-14) Blood Urea Nitrogen 32mg/dL (7-20) 30mg/dL (7-20) Creatinine 1.3mg/dL (0.6-1.0) 1.3mg/dL (0.6-1.0) Estimated GFR (Cockcroft-Gault) 40.6 40.6 BUN/Creatinine Ratio 25 (6-20) Glucose Level 122mg/dL (70-99) 107mg/dL (70-99) Calcium Level 9.9mg/dL (8.5-10.1) 9.3mg/dL (8.5-10.1) Total Bilirubin 1.7mg/dL (0.2-1.0) Aspartate Amino Transf (AST/SGOT) 37U/L (15-37) Alanine Aminotransferase (ALT/SGPT) 115U/L (14-59) Alkaline Phosphatase 101U/L (46-116) Troponin I Quantitative < 0.017ng/mL (0.000-0.055) < 0.017ng/mL (0.000-0.055) < 0.017ng/mL (0.000-0.055) RC-Due-X-Type Natriuretic Peptide 218pg/mL (0-124) Total Protein 7.3g/dL (6.4-8.2) Albumin 4.2g/dL (3.4-5.0) Albumin/Globulin Ratio 1.4 (1.0-1.7) Urine Collection Type Unknown Urine Color Yellow Urine Clarity Clear Urine pH 5.5 Urine Specific [place] 1.015 Urine Protein Negativemg/dL (NEG-TRACE) Urine Glucose (UA) Negativemg/dL (NEG) Urine Ketones (Stick) Negativemg/dL (NEG) Urine Blood Negative (NEG) Urine Nitrite Negative (NEG) Urine Bilirubin Negative (NEG) Urine Urobilinogen Dipstick 0.2mg/dL (0.2 mg/dL) Urine Leukocyte Esterase Negative (NEG) Urine RBC 0/HPF (0-2) Urine WBC 0/HPF (0-4) Urine Squamous Epithelial Cells Few/LPF Urine Bacteria Few/HPF (0-FEW) Magnesium Level 1.3mg/dL (1.8-2.4) Creatine Kinase 48U/L (26-192) Triglycerides Level 31mg/dL (0-150) Cholesterol Level 117mg/dL (0-200) LDL Cholesterol, Calculated 70mg/dL (0-100) VLDL Cholesterol, Calculated 6mg/dL (0-40) HDL Cholesterol 41mg/dL (40-60) Cholesterol/HDL Ratio 2.9 Thyroid Stimulating Hormone (TSH) 1.328uIU/mL (0.358-3.74) Medications Current Medications Ondansetron HCl (Zofran) 4 mg PRN Q8HRS PRN IV NAUSEA/VOMITING; Start 11/07/16 at 22:45; Stop 11/08/16 at 22:44 Acetaminophen (Tylenol) 650 mg PRN Q4HRS PRN PO FEVER; Start 11/07/16 at 22:45 ; Stop 11/08/16 at 22:44 Amlodipine Besylate 5 mg 5 mg 1X ONCE PO Last administered on 11/08/16 01:34 ; Start 11/08/16 at 01:45; Stop 11/08/16 at 01:46; Status DC Magnesium Sulfate/ Dextrose (Magnesium Sulfate PREMIX 4GM) 100 ml @ 25 mls/hr 1X ONCE IV Last administered on 11/08/16 12:32; Start 11/08/16 at 11:00; Stop 11/08/16 at 14:59; Status DC Amlodipine Besylate (Norvasc) 10 mg DAILY PO ; Start 11/09/16 at 09:00 Aspirin (Children'S Aspirin) 81 mg DAILY PO Last administered on 11/08/16 12: 29; Start 11/08/16 at 11:30 Carvedilol (Coreg) 12.5 mg BIDWMEALS PO ; Start 11/08/16 at 17:00 Ferrous Sulfate (Feosol) 325 mg DAILY PO Last administered on 11/08/16 12:31; Start 11/08/16 at 11:30 Potassium Chloride (Klor-Con) 10 meq DAILY PO Last administered on 11/08/16 12 :30; Start 11/08/16 at 11:30 Warfarin Sodium (Coumadin) 5 mg DAILY16 PO Last administered on 11/08/16 16:45 ; Start 11/08/16 at 16:00 Lisinopril (Prinivil) 20 mg DAILY PO Last administered on 11/08/16 12:31; Start 11/08/16 at 11:30 Warfarin Sodium 1 each 1 each PRN DAILY PRN MC SEE COMMENTS; Start 11/08/16 at 10:30 Magnesium Sulfate/ Dextrose 100 ml @ 25 mls/hr 1X ONCE IV ; Start 11/08/16 at 11:00; Stop 11/08/16 at 14:59; Status DC Sodium Chloride (Iv Sodium Chloride 0.9% 1000ml Bag) 1,000 ml @ 100 mls/hr 1X ONCE IV Last administered on 11/08/16 12:32; Start 11/08/16 at 11:00; Stop at 20:59 Enoxaparin Sodium (Lovenox Per Pharmacy Prophylaxis Dosing) 1 each PRN DAILY PRN MC SEE COMMENTS; Start 11/08/16 at 15:00 Enoxaparin Sodium (Lovenox 40mg Syringe) 40 mg Q24H SQ Last administered on 16:45; Start 11/08/16 at 16:00 Active Scripts Active Reported Aspirin 81 Mg Tab.chew 1 Tab PO DAILY Carvedilol 12.5 Mg Tablet 1 Tab PO BID Amlodipine Besylate 10 Mg Tablet 10 Mg PO DAILY Ramipril 10 Mg Capsule 1 Cap PO DAILY Vitamin [id number] Acid Tablet (Cyanocobalamin/Folic Acid) 1 Each Tablet Unknown Dose PO Iron (Ferrous Sulfate) 325 Mg Tablet Unknown Dose PO Warfarin Sodium 5 Mg Tablet Unknown Dose PO Potassium Chloride 10 Meq Tab.er.prt Unknown Dose PO Vitals/I & O Vital Sign - Last 24 Hours 11/07/16 11/07/16 11/07/16 11/07/16 20:30 21:30 22:00 22:30 Pulse 70 72 70 70 Resp 18 B/P 127/59 161/64 119/56 131/60 Pulse Ox 98 99 97 100 O2 Delivery Room Air Room Air Room Air Room Air 11/07/16 11/07/16 11/08/16 11/08/16 23:00 23:30 00:10 00:10 Temp 97.8 97.8 97.8 97.8 Pulse 70 70 82 82 Resp 18 B/P 150/109 130/58 181/66 181/66 Pulse Ox 99 99 99 99 O2 Delivery Room Air Room Air Room Air Room Air 11/08/16 11/08/16 11/08/16 11/08/16 00:50 01:34 03:30 07:07 Temp 98.1 98.0 98.1 98.0 Pulse 74 72 66 Resp 18 20 B/P 181/66 109/53 123/57 Pulse Ox 98 97 O2 Delivery Room Air Room Air Room Air 11/08/16 11/08/16 11/08/16 11/08/16 08:00 09:50 09:55 10:00 Temp 97.9 97.9 Pulse 65 68 71 Resp 20 B/P 110/42 125/57 131/47 Pulse Ox 95 95 95 O2 Delivery Room Air Room Air Room Air Room Air 11/08/16 11/08/16 11/08/16 12:31 14:40 16:49 Temp 98.0 98.0 Pulse 67 75 Resp 18 B/P 131/47 122/50 87/47 Pulse Ox 96 O2 Delivery Room Air Intake and Output 11/07/16 11/07/16 11/08/16 15:00 23:00 07:00 Intake Total 0 ml Balance 0 ml WOLF CAPONE MD Nov 08, 2016 18:50
[2016-11-09] MEDS ORDERED: AMLODIPINE BESYLATE 10 MG TABLET PO SCH (09:00)
== END 2016-11-08 19:50 | disposition home or self-care (01) | DRG 682 ==
LOC: ER 15:15 → 2 SOUTH 22:40
PROVIDERS: ADMIT Internal Medicine; ATTEND Internal Medicine
DX: N17.9 Acute kidney failure, unspecified (principal); I50.21 Acute systolic (congestive) heart failure; E87.2 Acidosis; I13.0 Hypertensive heart and chronic kidney disease with heart failure and stage 1 through stage 4 chronic kidney disease, or unspecified chronic kidney disease; R55 Syncope and collapse; E03.9 Hypothyroidism, unspecified; E78.5 Hyperlipidemia, unspecified; I48.0 Paroxysmal atrial fibrillation; E83.42 Hypomagnesemia; I44.0 Atrioventricular block, first degree; N18.3 Chronic kidney disease, stage 3 (moderate); Z96.651 Presence of right artificial knee joint; I35.0 Nonrheumatic aortic (valve) stenosis; E11.22 Type 2 diabetes mellitus with diabetic chronic kidney disease; F41.9 Anxiety disorder, unspecified; M19.90 Unspecified osteoarthritis, unspecified site; Z87.440 Personal history of urinary (tract) infections; Z79.01 Long term (current) use of anticoagulants; Z79.82 Long term (current) use of aspirin
CPT/HCPCS: 36415; 70450; 71010; 80048; 80053; 80061; 81001; 82550; 83735; 83880; 84443; 84484; 85027; 85610; 85730; 87804; 93005; 93306; J1650; J3475; J7030; 99285-25